=== PATIENT | male | born 1960 | race Hispanic/Latino ===

== ENCOUNTER 2018-01-21 12:06 | Inpatient (IN) | payer MEDICARE ==
[2018-01-21] MEDS ORDERED: MOTRIN 800 MG PO PRN (14:33)
[2018-01-21] MEDS ORDERED: NON-FORMULARY (Levetiracetam [Keppra Tab] 1,000 MG) PO SCH (14:45)
[2018-01-21] MEDS ORDERED: NON-FORMULARY (Omeprazole Magnesium [Prilosec Otc] 20 MG) PO SCH (14:45)
[2018-01-21] MEDS ORDERED: FLUTICASONE INHALATION SCH (14:45)
[2018-01-21] MEDS ORDERED: VITAMIN B-1 100 MG, FOLVITE 1 MG, INFUVITE 10 ML in NACL 0.9% 1000 ML 1,000 ML IV ONE (14:46)
[2018-01-21] MEDS ORDERED: SODIUM CHLORIDE FLUSH SYRINGE 10 ML IV PRN (14:48)
[2018-01-21] MEDS ORDERED: TYLENOL PO PRN (14:48)
[2018-01-21] MEDS ORDERED: ZOFRAN IV PRN (14:48)
[2018-01-21] MEDS ORDERED: AMBIEN PO PRN (14:48)
[2018-01-21] MEDS ORDERED: PERCOCET 5/325 PO PRN (14:48)
[2018-01-21] MEDS ORDERED: MORPHINE IV PRN (14:48)
[2018-01-21] MEDS ORDERED: ATIVAN IV PRN (14:51)
[2018-01-21 14:57] LABS: Amphetamine Screen,Urine PRESUMPTIVE NEGATIVE; Benzodiazepines Screen,Urine PRESUMPTIVE NEGATIVE; Cannabinoid Screen,Urine PRESUMPTIVE NEGATIVE; Cocaine Screen,Urine PRESUMPTIVE NEGATIVE; Methadone Screen,Urine PRESUMPTIVE NEGATIVE; Opiate Screen,Urine PRESUMPTIVE NEGATIVE
[2018-01-21] MEDS: FLONASE NS SCH (15:26)
[2018-01-21] MEDS: ALLBEE WITH C PO SCH (15:26)
[2018-01-21] MEDS: TOPAMAX PO SCH ×2 (15:27→21:31)
[2018-01-21] MEDS: ZOLOFT PO SCH (15:27)
[2018-01-21 15:59] LABS: Basophils % (Auto) 1.1 % (0.0-1.8); Eosinophils # (Auto) 0.2 K/mm3 (0.0-0.4); Eosinophils % (Auto) 4.8 % (0.0-4.3); Hematocrit 36.3 % (35.5-45.6); Hemoglobin 12.6 gm/dl (11.8-15.2); Lymphocytes # (Auto) 1.7 K/mm3 (1.2-5.4); Lymphocytes % (Auto) 40.3 % (13.4-35.0); Mean Corpuscular HGB Conc 35 % (32-34); Mean Corpuscular Hemoglobin 34 pg (28-32); Mean Corpuscular Volume 98 fl (84-94); Monocytes # (Auto) 0.4 K/mm3 (0.0-0.8); Red Blood Count 3.71 M/mm3 (3.65-5.03); Red Cell Distribution Width 14.4 % (13.2-15.2)
[2018-01-21 16:17] LABS: Alanine Aminotransferase 18 units/L (7-56); Albumin 4.5 g/dL (3.9-5); BUN/Creatinine Ratio 24; Blood Urea Nitrogen 17 mg/dL (9-20); Calcium 9.6 mg/dL (8.4-10.2); Hemolysis Index 65
[2018-01-21 16:34] LABS: Platelet Count 121 K/mm3 (140-440)
[2018-01-21] MEDS: PEPCID PO SCH (21:31)
[2018-01-21] MEDS: KEPPRA PO SCH (21:31)
[2018-01-21] MEDS: SODIUM CHLORIDE FLUSH SYRINGE 10 ML IV SCH (21:32)
[2018-01-21] MEDS: MOTRIN PO PRN (21:32)
[2018-01-21] MEDS: D5NS 1,000 ML IV SCH (21:35)
--- NOTE | 2018-01-21 22:03 | History and Physical Report ---
History of Present Illness Date of examination: 01/21/18 Date of admission: 01/21/18 13:33 Chief complaint: CC: EtOH dependence and withdrawal --2 days History of present illness: History of present illness ; 57-year-old male with history of hypertension cerebrovascular accident comes in for EtOH dependence for the last 30 years. Patient does binge drinking once or twice a week. 8 ounces TO 16 ounces of vodka. Patient has some nervousness and agitation and withdrawal symptoms. Hence patient was admission for stabilization and further specialists care. Patient is nervous. Past History Past Medical History: GERD, hypertension, stroke (has residual left upper extremity weakness 3+/5 POWER) Past Surgical History: Other (arthroscopic knee left) Social history: smoking (in the past), alcohol abuse (based drinking once or twice a week up to 60 ounces of vodka as been doing it for last 30 years), full code Family history: hypertension Medications and Allergies Allergies Allergy/AdvReac Type Severity Reaction Status Date / Time BEE STING Allergy Swelling Uncoded 01/21/18 13:45 LOBSTER Allergy Hives Uncoded 01/21/18 13:45 Home Medications Medication Instructions Recorded Confirmed Last Taken Type B-Complex with Vitamin C 1 each PO DAILY 01/21/18 01/21/18 01/21/18 History [B-Complex Plus Vitamin C] Fluticasone (Nf) [Flovent 44 2 puff INHALATION DAILY 01/21/18 01/21/18 01/20/18 09:00 History MCG/PUFF HFA] Fluticasone [Flonase] 1 spray NS QDAY 01/21/18 01/21/18 Unknown History Motrin 800 MG tab 800 mg PO TID PRN 01/21/18 01/21/18 Unknown History Omeprazole Magnesium [PriLOSEC Otc] 20 mg PO QDAY 01/21/18 01/21/18 01/21/18 09: 00 History Sertraline [Zoloft] 100 mg PO QDAY 01/21/18 01/21/18 01/21/18 09:00 History Topiramate [Topamax] 200 mg PO BID 01/21/18 01/21/18 01/21/18 12:00 History levETIRAcetam [Keppra TAB] 2,000 mg PO BID 0901/21/18 01/21/18 12:00 History Active Meds: Active Medications Acetaminophen (Tylenol) 650 mg PO Q4H PRN PRN Reason: Pain MILD(1-3)/Fever >100.5/[place] Famotidine (Pepcid) 20 mg PO BID [facility] Last Admin: 01/21/18 21:31 Dose: 20 mg Fluticasone Propionate (Flonase) 50 mcg NS QDAY [facility] Last Admin: 01/21/18 15:26 Dose: Not Given Fluticasone Propionate (Flonase) 100 mcg NS QDAY [facility] Folic Acid (Folvite) 1 mg PO QDAY [facility] Thiamine HCl 100 mg/ Folic Acid 1 mg/ Multivitamins/Minerals 10 ml/ Sodium Chloride 1,011.2 mls @ 125 mls/hr IV ONCE ONE Stop: 01/21/18 22:51 Last Admin: 01/21/18 15:34 Dose: 125 mls/hr Dextrose/Sodium Chloride (D5ns) 1,000 mls @ 100 mls/hr IV DIRECT [facility] Last Admin: 01/21/18 21:35 Dose: 100 mls/hr Ibuprofen (Motrin) 800 mg PO Q8H PRN PRN Reason: Pain, Moderate (4-6) Last Admin: 01/21/18 21:32 Dose: 800 mg Levetiracetam (Keppra) 1,000 mg PO BID [facility] Last Admin: 01/21/18 21:31 Dose: 1,000 mg Lorazepam (Ativan) 1 mg IV Q4H PRN PRN Reason: Anxiety Stop: 01/22/18 05:00 Lorazepam (Ativan) 1 mg IV Q6H PRN PRN Reason: Agitation Stop: 01/23/18 04:59 Lorazepam (Ativan) 1 mg PO Q8H PRN PRN Reason: Agitation Stop: 01/27/18 23:59 Morphine Sulfate (Morphine) 2 mg IV Q4H PRN PRN Reason: Pain, Moderate (4-6) Ondansetron HCl (Zofran) 4 mg IV Q8H PRN PRN Reason: Nausea And Vomiting Oxycodone/Acetaminophen (Percocet 5/325) 1 tab PO Q6H PRN PRN Reason: Pain, Moderate (4-6) Pantoprazole Sodium (Protonix) 20 mg PO QDAY [facility] Sertraline HCl (Zoloft) 100 mg PO QDAY [facility] Last Admin: 01/21/18 15:27 Dose: Not Given Sodium Chloride (Sodium Chloride Flush Syringe 10 Ml) 10 ml IV BID [facility] Last Admin: 01/21/18 21:32 Dose: 10 ml Sodium Chloride (Sodium Chloride Flush Syringe 10 Ml) 10 ml IV PRN PRN PRN Reason: LINE FLUSH Thiamine HCl (Vitamin B-1) 100 mg PO QDAY [facility] Topiramate (Topamax) 200 mg PO BID [facility] Last Admin: 01/21/18 21:31 Dose: 200 mg Vitamin B Complex/Vitamin C ([place] With C) 1 each PO DAILY [facility] Last Admin: 01/21/18 15:26 Dose: Not Given Zolpidem Tartrate (Ambien) 5 mg PO QHS PRN PRN Reason: Insomnia Review of Systems All systems: negative Ears, nose, mouth and throat: no hoarseness, no sore throat Cardiovascular: no chest pain, no orthopnea, no palpitations, no rapid/ irregular heart beat, no edema, no syncope, no lightheadedness, no shortness of breath Respiratory: no cough, no cough with sputum, no excessive sputum, no hemoptysis , no shortness of breath, no dyspnea on exertion Gastrointestinal: no abdominal pain, no nausea, no vomiting, no diarrhea, no constipation, no change in bowel habits, no hematemesis Genitourinary Male: no dysuria, no hematuria, no discharge Rectal: no pain Musculoskeletal: no neck stiffness, no neck pain, no shooting arm pain, no arm numbness/tingling, no low back pain Integumentary: no rash, no pruritis, no redness, no sores Neurological: weakness (left upper extremity 3+/5 power) Psychiatric: anxiety, insomnia, change in appetite, irritability Endocrine: no cold intolerance, no heat intolerance, no polyphagia, no excessive thirst Hematologic/Lymphatic: no easy bruising, no easy bleeding Allergic/Immunologic: no urticaria, no allergic rhinitis, no wheezing Exam - Constitutional Vitals: Temp Pulse Resp BP Pulse Ox 97.8 F 60 20 96/62 95 01/21/18 20:00 01/21/18 20:00 01/21/18 20:00 01/21/18 20:00 01/21/18 20:00 General appearance: Present: no acute distress, well-nourished - EENT Eyes: Present: PERRL ENT: hearing intact, clear oral mucosa - Neck Neck: Present: supple, normal ROM - Respiratory Respiratory effort: normal Respiratory: bilateral: CTA - Cardiovascular Heart rate: 80 Rhythm: regular Heart Sounds: Present: S1 & S2. Absent: rub, click - Extremities Extremities: no ischemia, pulses intact, pulses symmetrical, No edema Peripheral Pulses: within normal limits - Abdominal General gastrointestinal: Present: soft, non-tender, non-distended, normal bowel sounds Male genitourinary: Present: normal - Rectal Rectal Exam: deferred - Integumentary Integumentary: Present: clear, warm, dry - Musculoskeletal Musculoskeletal: gait normal, strength equal bilaterally - Psychiatric Psychiatric: appropriate mood/affect, intact judgment & insight - Neurologic Neurologic: CNII-XII intact, moves all extremities Results - Labs CBC & Chem 7: 01/21/18 15:07 01/21/18 15:07 Labs: Laboratory Last Values WBC 4.3 K/mm3 (4.5-11.0) L 01/21/18 15:07 RBC 3.71 M/mm3 (3.65-5.03) 01/21/18 15:07 Hgb 12.6 gm/dl (11.8-15.2) 01/21/18 15:07 Hct 36.3 % (35.5-45.6) 01/21/18 15:07 MCV 98 fl (84-94) H 01/21/18 15:07 MCH 34 pg (28-32) H 01/21/18 15:07 MCHC 35 % (32-34) H 01/21/18 15:07 RDW 14.4 % (13.2-15.2) 01/21/18 15:07 Plt Count 121 K/mm3 (140-440) L 01/21/18 15:07 Lymph % (Auto) 40.3 % (13.4-35.0) H 01/21/18 15:07 [place] % (Auto) 10.0 % (0.0-7.3) H 01/21/18 15:07 Eos % (Auto) 4.8 % (0.0-4.3) H 01/21/18 15:07 Baso % (Auto) 1.1 % (0.0-1.8) 01/21/18 15:07 Lymph # 1.7 K/mm3 (1.2-5.4) 01/21/18 15:07 [place] # 0.4 K/mm3 (0.0-0.8) 01/21/18 15:07 Eos # 0.2 K/mm3 (0.0-0.4) 01/21/18 15:07 Baso # 0.0 K/mm3 (0.0-0.1) 01/21/18 15:07 Seg Neutrophils % 43.8 % (40.0-70.0) 01/21/18 15:07 Seg Neutrophils # 1.9 K/mm3 (1.8-7.7) 01/21/18 15:07 Sodium 138 mmol/L (137-145) 01/21/18 15:07 Potassium 4.9 mmol/L (3.6-5.0) 01/21/18 15:07 Chloride 105.2 mmol/L (98-107) 01/21/18 15:07 Carbon Dioxide 24 mmol/L (22-30) 01/21/18 15:07 Anion Gap 14 mmol/L 01/21/18 15:07 BUN 17 mg/dL (9-20) 01/21/18 15:07 Creatinine 0.7 mg/dL (0.8-1.5) L 01/21/18 15:07 Estimated GFR > 60 ml/min 01/21/18 15:07 BUN/Creatinine Ratio 24 % 01/21/18 15:07 Glucose 74 mg/dL (75-100) L 01/21/18 15:07 Hemoglobin A1c 5.5 % (4-6) 01/21/18 15:07 Calcium 9.6 mg/dL (8.4-10.2) 01/21/18 15:07 Total Bilirubin 0.30 mg/dL (0.1-1.2) 01/21/18 15:07 AST 29 units/L (5-40) 01/21/18 15:07 ALT 18 units/L (7-56) 01/21/18 15:07 Alkaline Phosphatase 66 units/L (35-129) 01/21/18 15:07 Total Protein 7.0 g/dL (6.3-8.2) 01/21/18 15:07 Albumin 4.5 g/dL (3.9-5) 01/21/18 15:07 Albumin/Globulin Ratio 1.8 % 01/21/18 15:07 Urine Opiates Screen Presumptive negative 01/21/18 Unknown Urine Methadone Screen Presumptive negative 01/21/18 Unknown Ur Barbiturates Screen Presumptive negative 01/21/18 Unknown Ur Phencyclidine Scrn Presumptive negative 01/21/18 Unknown Ur Amphetamines Screen Presumptive negative 01/21/18 Unknown U Benzodiazepines Scrn Presumptive negative 01/21/18 Unknown Urine Cocaine Screen Presumptive negative 01/21/18 Unknown U Marijuana (THC) Screen Presumptive negative 01/21/18 Unknown Drugs of Abuse Note Disclamer 01/21/18 Unknown Assessment and Plan Advance Directives: Yes (full code) VTE prophylaxis?: Chemical Plan of care discussed with patient/family: Yes - Patient Problems (1) EtOH dependence Current Visit: Yes Status: Chronic Qualifiers: Substance use status: uncomplicated Qualified Code(s): F10.20 - Alcohol dependence, uncomplicated Plan to address problem: Patient initiated on banana bag and IV Ativan 1 mg every 4 hours when necessary for the first day then daily 1 mg every 6 hours on the second day and lorazepam 1 mg every 8 hours the third day. I also initiated on thiamine and folic acid, Zofran for nausea or vomiting (2) GERD (gastroesophageal reflux disease) Current Visit: Yes Status: Chronic Qualifiers: Esophagitis presence: without esophagitis Qualified Code(s): K21.9 - Gastro -esophageal reflux disease without esophagitis Plan to address problem: Omeprazole started (3) Allergic rhinitis Current Visit: Yes Status: Chronic Qualifiers: Allergic rhinitis seasonality: unspecified Plan to address problem: Continue Flonase (4) DVT prophylaxis Current Visit: Yes Status: Acute Plan to address problem: On Lovenox
[2018-01-22] MEDS ORDERED: ATIVAN IV PRN ×2 (05:00→16:32)
[2018-01-22] MEDS: TOPAMAX PO SCH ×2 (09:00→23:43)
[2018-01-22] MEDS: FOLVITE PO SCH (09:00)
[2018-01-22] MEDS: PROTONIX PO SCH (09:00)
[2018-01-22] MEDS: PEPCID PO SCH ×2 (09:01→23:38)
[2018-01-22] MEDS: ZOLOFT PO SCH (09:01)
[2018-01-22] MEDS: VITAMIN B-1 PO SCH (09:01)
[2018-01-22] MEDS: KEPPRA PO SCH ×2 (09:01→23:39)
[2018-01-22] MEDS: FLONASE NS SCH (09:02)
[2018-01-22] MEDS: ALLBEE WITH C PO SCH (09:02)
[2018-01-22] MEDS ORDERED: FLONASE NS SCH (10:00)
[2018-01-22] MEDS: D5NS 1,000 ML IV SCH (10:17)
[2018-01-22] MEDS: SODIUM CHLORIDE FLUSH SYRINGE 10 ML IV SCH (10:19)
[2018-01-22] MEDS ORDERED: ROBAXIN PO PRN (16:32)
[2018-01-22] MEDS ORDERED: VISTARIL PO PRN (16:32)
[2018-01-22] MEDS ORDERED: BENTYL PO PRN (16:32)
[2018-01-22] MEDS: ATIVAN PO SCH ×2 (17:55→23:38)
--- NOTE | 2018-01-22 18:20 | Progress Note ---
Assessment and Plan Assessment and plan: Alcohol dependence. patient admitted for stabilization. Cont ativan as per protocol Thiamine, folic acid Alcohol withdrawal syndrome. CIWA protocol History of allergic rhinitis Zyrtec full code status History Interval history: Tremors, Nausea Anxiety Hospitalist Physical - Physical exam Narrative exam: GEN: Not in acute distress, sitting up in bed, HEENT: Normocephalic, atraumatic, Neck: supple, No JVD Lungs: Clear to auscultation bilaterally, no crackles Heart:S1 and S2 reg, no murmurs, rubs or gallop Abd:soft, tender, non distended,Normal bowel sounds Ext: No edema, no clubbing, no cyanosis Neuro: Awake, alert, oriented x 3, mild tremors both hands - Constitutional Vitals: Temp Pulse Resp BP Pulse Ox 98.0 F 54 L 20 111/56 100 01/22/18 16:06 01/22/18 16:06 01/22/18 16:06 01/22/18 16:06 01/22/18 16:06 General appearance: Present: no acute distress, well-nourished Results - Labs CBC & Chem 7: 01/21/18 15:07 01/21/18 15:07 Labs: Laboratory Last Values WBC 4.3 K/mm3 (4.5-11.0) L 01/21/18 15:07 RBC 3.71 M/mm3 (3.65-5.03) 01/21/18 15:07 Hgb 12.6 gm/dl (11.8-15.2) 01/21/18 15:07 Hct 36.3 % (35.5-45.6) 01/21/18 15:07 MCV 98 fl (84-94) H 01/21/18 15:07 MCH 34 pg (28-32) H 01/21/18 15:07 MCHC 35 % (32-34) H 01/21/18 15:07 RDW 14.4 % (13.2-15.2) 01/21/18 15:07 Plt Count 121 K/mm3 (140-440) L 01/21/18 15:07 Lymph % (Auto) 40.3 % (13.4-35.0) H 01/21/18 15:07 [place] % (Auto) 10.0 % (0.0-7.3) H 01/21/18 15:07 Eos % (Auto) 4.8 % (0.0-4.3) H 01/21/18 15:07 Baso % (Auto) 1.1 % (0.0-1.8) 01/21/18 15:07 Lymph # 1.7 K/mm3 (1.2-5.4) 01/21/18 15:07 [place] # 0.4 K/mm3 (0.0-0.8) 01/21/18 15:07 Eos # 0.2 K/mm3 (0.0-0.4) 01/21/18 15:07 Baso # 0.0 K/mm3 (0.0-0.1) 01/21/18 15:07 Seg Neutrophils % 43.8 % (40.0-70.0) 01/21/18 15:07 Seg Neutrophils # 1.9 K/mm3 (1.8-7.7) 01/21/18 15:07 Sodium 138 mmol/L (137-145) 01/21/18 15:07 Potassium 4.9 mmol/L (3.6-5.0) 01/21/18 15:07 Chloride 105.2 mmol/L (98-107) 01/21/18 15:07 Carbon Dioxide 24 mmol/L (22-30) 01/21/18 15:07 Anion Gap 14 mmol/L 01/21/18 15:07 BUN 17 mg/dL (9-20) 01/21/18 15:07 Creatinine 0.7 mg/dL (0.8-1.5) L 01/21/18 15:07 Estimated GFR > 60 ml/min 01/21/18 15:07 BUN/Creatinine Ratio 24 % 01/21/18 15:07 Glucose 74 mg/dL (75-100) L 01/21/18 15:07 Hemoglobin A1c 5.5 % (4-6) 01/21/18 15:07 Calcium 9.6 mg/dL (8.4-10.2) 01/21/18 15:07 Total Bilirubin 0.30 mg/dL (0.1-1.2) 01/21/18 15:07 AST 29 units/L (5-40) 01/21/18 15:07 ALT 18 units/L (7-56) 01/21/18 15:07 Alkaline Phosphatase 66 units/L (35-129) 01/21/18 15:07 Total Protein 7.0 g/dL (6.3-8.2) 01/21/18 15:07 Albumin 4.5 g/dL (3.9-5) 01/21/18 15:07 Albumin/Globulin Ratio 1.8 % 01/21/18 15:07 Urine Opiates Screen Presumptive negative 01/21/18 Unknown Urine Methadone Screen Presumptive negative 01/21/18 Unknown Ur Barbiturates Screen Presumptive negative 01/21/18 Unknown Ur Phencyclidine Scrn Presumptive negative 01/21/18 Unknown Ur Amphetamines Screen Presumptive negative 01/21/18 Unknown U Benzodiazepines Scrn Presumptive negative 01/21/18 Unknown Urine Cocaine Screen Presumptive negative 01/21/18 Unknown U Marijuana (THC) Screen Presumptive negative 01/21/18 Unknown Drugs of Abuse Note Disclamer 01/21/18 Unknown
[2018-01-23] MEDS ORDERED: ATIVAN PO PRN (04:55)
[2018-01-23] MEDS: PEPCID PO SCH ×2 (09:39→21:23)
[2018-01-23] MEDS: KEPPRA PO SCH ×2 (09:40→21:23)
[2018-01-23] MEDS: ATIVAN PO SCH ×4 (09:40→17:40)
[2018-01-23] MEDS: FOLVITE PO SCH (09:40)
[2018-01-23] MEDS: VITAMIN B-1 PO SCH (09:40)
[2018-01-23] MEDS: ZOLOFT PO SCH (09:40)
[2018-01-23] MEDS: PROTONIX PO SCH (09:40)
[2018-01-23] MEDS: SODIUM CHLORIDE FLUSH SYRINGE 10 ML IV SCH ×2 (09:41→23:31)
[2018-01-23] MEDS: TOPAMAX PO SCH ×2 (09:41→21:23)
[2018-01-23] MEDS: ALLBEE WITH C PO SCH (09:41)
[2018-01-23] MEDS: CLARITIN PO SCH (12:37)
[2018-01-23] MEDS: FLONASE NS SCH (17:56)
--- NOTE | 2018-01-23 18:13 | Progress Note ---
Assessment and Plan Assessment and plan: Alcohol dependence. patient admitted for stabilization. Cont Ativan as per protocol Thiamine, folic acid Robaxin Alcohol withdrawal syndrome. CIWA protocol History of allergic rhinitis On Claritin full code status History Interval history: Tremors, Nausea Anxiety Hospitalist Physical - Physical exam Narrative exam: GEN: Not in acute distress, sitting up in bed, HEENT: Normocephalic, atraumatic, Neck: supple, No JVD Lungs: Clear to auscultation bilaterally, no crackles Heart:S1 and S2 reg, no murmurs, rubs or gallop Abd:soft, tender, non distended,Normal bowel sounds Ext: No edema, no clubbing, no cyanosis Neuro: Awake, alert, oriented x 3, mild tremors both hands - Constitutional Vitals: Temp Pulse Resp BP Pulse Ox 98.2 F 82 20 91/66 100 01/23/18 13:00 01/23/18 13:00 01/23/18 13:00 01/23/18 13:00 01/23/18 13:00 General appearance: Present: no acute distress, well-nourished Results - Labs CBC & Chem 7: 01/21/18 15:07 01/21/18 15:07 Labs: Laboratory Last Values WBC 4.3 K/mm3 (4.5-11.0) L 01/21/18 15:07 RBC 3.71 M/mm3 (3.65-5.03) 01/21/18 15:07 Hgb 12.6 gm/dl (11.8-15.2) 01/21/18 15:07 Hct 36.3 % (35.5-45.6) 01/21/18 15:07 MCV 98 fl (84-94) H 01/21/18 15:07 MCH 34 pg (28-32) H 01/21/18 15:07 MCHC 35 % (32-34) H 01/21/18 15:07 RDW 14.4 % (13.2-15.2) 01/21/18 15:07 Plt Count 121 K/mm3 (140-440) L 01/21/18 15:07 Lymph % (Auto) 40.3 % (13.4-35.0) H 01/21/18 15:07 [place] % (Auto) 10.0 % (0.0-7.3) H 01/21/18 15:07 Eos % (Auto) 4.8 % (0.0-4.3) H 01/21/18 15:07 Baso % (Auto) 1.1 % (0.0-1.8) 01/21/18 15:07 Lymph # 1.7 K/mm3 (1.2-5.4) 01/21/18 15:07 [place] # 0.4 K/mm3 (0.0-0.8) 01/21/18 15:07 Eos # 0.2 K/mm3 (0.0-0.4) 01/21/18 15:07 Baso # 0.0 K/mm3 (0.0-0.1) 01/21/18 15:07 Seg Neutrophils % 43.8 % (40.0-70.0) 01/21/18 15:07 Seg Neutrophils # 1.9 K/mm3 (1.8-7.7) 01/21/18 15:07 Sodium 138 mmol/L (137-145) 01/21/18 15:07 Potassium 4.9 mmol/L (3.6-5.0) 01/21/18 15:07 Chloride 105.2 mmol/L (98-107) 01/21/18 15:07 Carbon Dioxide 24 mmol/L (22-30) 01/21/18 15:07 Anion Gap 14 mmol/L 01/21/18 15:07 BUN 17 mg/dL (9-20) 01/21/18 15:07 Creatinine 0.7 mg/dL (0.8-1.5) L 01/21/18 15:07 Estimated GFR > 60 ml/min 01/21/18 15:07 BUN/Creatinine Ratio 24 % 01/21/18 15:07 Glucose 74 mg/dL (75-100) L 01/21/18 15:07 Hemoglobin A1c 5.5 % (4-6) 01/21/18 15:07 Calcium 9.6 mg/dL (8.4-10.2) 01/21/18 15:07 Total Bilirubin 0.30 mg/dL (0.1-1.2) 01/21/18 15:07 AST 29 units/L (5-40) 01/21/18 15:07 ALT 18 units/L (7-56) 01/21/18 15:07 Alkaline Phosphatase 66 units/L (35-129) 01/21/18 15:07 Total Protein 7.0 g/dL (6.3-8.2) 01/21/18 15:07 Albumin 4.5 g/dL (3.9-5) 01/21/18 15:07 Albumin/Globulin Ratio 1.8 % 01/21/18 15:07 Urine Opiates Screen Presumptive negative 01/21/18 Unknown Urine Methadone Screen Presumptive negative 01/21/18 Unknown Ur Barbiturates Screen Presumptive negative 01/21/18 Unknown Ur Phencyclidine Scrn Presumptive negative 01/21/18 Unknown Ur Amphetamines Screen Presumptive negative 01/21/18 Unknown U Benzodiazepines Scrn Presumptive negative 01/21/18 Unknown Urine Cocaine Screen Presumptive negative 01/21/18 Unknown U Marijuana (THC) Screen Presumptive negative 01/21/18 Unknown Drugs of Abuse Note Disclamer 01/21/18 Unknown
[2018-01-23] MEDS: MOTRIN PO PRN (21:22)
[2018-01-24] MEDS: ATIVAN PO SCH ×4 (00:13→22:41)
[2018-01-24] MEDS: FLONASE NS SCH (09:12)
[2018-01-24] MEDS: PEPCID PO SCH ×2 (09:13→22:41)
[2018-01-24] MEDS: PROTONIX PO SCH (09:13)
[2018-01-24] MEDS: VITAMIN B-1 PO SCH (09:13)
[2018-01-24] MEDS: KEPPRA PO SCH ×2 (09:14→22:41)
[2018-01-24] MEDS: CLARITIN PO SCH (09:14)
[2018-01-24] MEDS: FOLVITE PO SCH (09:14)
[2018-01-24] MEDS: ALLBEE WITH C PO SCH (09:16)
[2018-01-24] MEDS: SODIUM CHLORIDE FLUSH SYRINGE 10 ML IV SCH ×2 (09:17→22:42)
[2018-01-24] MEDS: ZOLOFT PO SCH (09:20)
[2018-01-24] MEDS: TOPAMAX PO SCH ×2 (10:16→22:41)
[2018-01-25] MEDS: ATIVAN PO SCH (06:14)
[2018-01-25] MEDS: SODIUM CHLORIDE FLUSH SYRINGE 10 ML IV SCH (09:17)
[2018-01-25] MEDS: PEPCID PO SCH (09:18)
[2018-01-25] MEDS: ALLBEE WITH C PO SCH (09:18)
[2018-01-25] MEDS: KEPPRA PO SCH (09:18)
[2018-01-25] MEDS: CLARITIN PO SCH (09:19)
[2018-01-25] MEDS: VITAMIN B-1 PO SCH (09:19)
[2018-01-25] MEDS: FOLVITE PO SCH (09:19)
[2018-01-25] MEDS: PROTONIX PO SCH (09:19)
[2018-01-25] MEDS: ZOLOFT PO SCH (09:20)
[2018-01-25] MEDS: FLONASE NS SCH (09:20)
[2018-01-25] MEDS: TOPAMAX PO SCH (09:20)
--- NOTE | 2018-01-25 11:25 | Progress Note ---
Assessment and Plan Assessment and plan: Alcohol dependence. patient admitted for stabilization. Cont Ativan as per protocol ContinueThiamine, folic acid Robaxin Alcohol withdrawal syndrome. CIWA protocol Anxiety. History of allergic rhinitis On Claritin full code status Likely discharge to [facility] tomorrow History Interval history: feels better, less Tremors, Anxiety improved Hospitalist Physical - Physical exam Narrative exam: GEN: Not in acute distress, sitting up in bed, HEENT: Normocephalic, atraumatic, Neck: supple, No JVD Lungs: Clear to auscultation bilaterally, no crackles Heart:S1 and S2 reg, no murmurs, rubs or gallop Abd:soft, tender, non distended,Normal bowel sounds Ext: No edema, no clubbing, no cyanosis Neuro: Awake, alert, oriented x 3, mild tremors both hands - Constitutional Vitals: Temp Pulse Resp BP Pulse Ox 97.9 F 67 18 99/57 97 01/25/18 08:03 01/25/18 10:00 01/25/18 10:00 01/25/18 08:03 01/25/18 10:00 General appearance: Present: no acute distress, well-nourished Results - Labs CBC & Chem 7: 01/21/18 15:07 01/21/18 15:07 Labs: Laboratory Last Values WBC 4.3 K/mm3 (4.5-11.0) L 01/21/18 15:07 RBC 3.71 M/mm3 (3.65-5.03) 01/21/18 15:07 Hgb 12.6 gm/dl (11.8-15.2) 01/21/18 15:07 Hct 36.3 % (35.5-45.6) 01/21/18 15:07 MCV 98 fl (84-94) H 01/21/18 15:07 MCH 34 pg (28-32) H 01/21/18 15:07 MCHC 35 % (32-34) H 01/21/18 15:07 RDW 14.4 % (13.2-15.2) 01/21/18 15:07 Plt Count 121 K/mm3 (140-440) L 01/21/18 15:07 Lymph % (Auto) 40.3 % (13.4-35.0) H 01/21/18 15:07 [place] % (Auto) 10.0 % (0.0-7.3) H 01/21/18 15:07 Eos % (Auto) 4.8 % (0.0-4.3) H 01/21/18 15:07 Baso % (Auto) 1.1 % (0.0-1.8) 01/21/18 15:07 Lymph # 1.7 K/mm3 (1.2-5.4) 01/21/18 15:07 [place] # 0.4 K/mm3 (0.0-0.8) 01/21/18 15:07 Eos # 0.2 K/mm3 (0.0-0.4) 01/21/18 15:07 Baso # 0.0 K/mm3 (0.0-0.1) 01/21/18 15:07 Seg Neutrophils % 43.8 % (40.0-70.0) 01/21/18 15:07 Seg Neutrophils # 1.9 K/mm3 (1.8-7.7) 01/21/18 15:07 Sodium 138 mmol/L (137-145) 01/21/18 15:07 Potassium 4.9 mmol/L (3.6-5.0) 01/21/18 15:07 Chloride 105.2 mmol/L (98-107) 01/21/18 15:07 Carbon Dioxide 24 mmol/L (22-30) 01/21/18 15:07 Anion Gap 14 mmol/L 01/21/18 15:07 BUN 17 mg/dL (9-20) 01/21/18 15:07 Creatinine 0.7 mg/dL (0.8-1.5) L 01/21/18 15:07 Estimated GFR > 60 ml/min 01/21/18 15:07 BUN/Creatinine Ratio 24 % 01/21/18 15:07 Glucose 74 mg/dL (75-100) L 01/21/18 15:07 Hemoglobin A1c 5.5 % (4-6) 01/21/18 15:07 Calcium 9.6 mg/dL (8.4-10.2) 01/21/18 15:07 Total Bilirubin 0.30 mg/dL (0.1-1.2) 01/21/18 15:07 AST 29 units/L (5-40) 01/21/18 15:07 ALT 18 units/L (7-56) 01/21/18 15:07 Alkaline Phosphatase 66 units/L (35-129) 01/21/18 15:07 Total Protein 7.0 g/dL (6.3-8.2) 01/21/18 15:07 Albumin 4.5 g/dL (3.9-5) 01/21/18 15:07 Albumin/Globulin Ratio 1.8 % 01/21/18 15:07 Urine Opiates Screen Presumptive negative 01/21/18 Unknown Urine Methadone Screen Presumptive negative 01/21/18 Unknown Ur Barbiturates Screen Presumptive negative 01/21/18 Unknown Ur Phencyclidine Scrn Presumptive negative 01/21/18 Unknown Ur Amphetamines Screen Presumptive negative 01/21/18 Unknown U Benzodiazepines Scrn Presumptive negative 01/21/18 Unknown Urine Cocaine Screen Presumptive negative 01/21/18 Unknown U Marijuana (THC) Screen Presumptive negative 01/21/18 Unknown Drugs of Abuse Note Disclamer 01/21/18 Unknown
--- NOTE | 2018-01-25 11:33 | Discharge Summary ---
Providers - Providers Date of Admission: 01/21/18 13:33 Date of discharge: 01/25/18 Attending physician: MALENA RODGERS 01/21/18 Consult to Case Management [CONS] Routine Services Needed at Discharge: Home Health Services Notified:: Case Management Phone number called:: [phone] Was contact made?: Yes If yes, spoke with:: Diana Time called:: 17:00 Hospitalization Condition: Fair Disposition: DC/TX-65 PSY HOSP/PSY UNIT Core Measure Documentation - Palliative Care Palliative Care/ Comfort Measures: Not Applicable - Core Measures Any of the following diagnoses?: none Exam - Constitutional Vitals: Temp Pulse Resp BP Pulse Ox 97.9 F 67 18 99/57 97 01/25/18 08:03 01/25/18 10:00 01/25/18 10:00 01/25/18 08:03 01/25/18 10:00 Plan Activity: advance as tolerated Diet: low salt Additional Instructions: 1.Follow up with PCP on discharge Follow up with: YELENA GUSMAN MD [Other] - 7 Days Prescriptions: Folic Acid [Folvite] 1 mg PO QDAY #30 tablet Thiamine [Vitamin B-1] 100 mg PO QDAY #30 tablet
[2018-01-25 11:44] VITALS: BP 96/74
== END 2018-01-25 13:05 | DRG 897 ==
LOC: MSU 13:33
PROVIDERS: ADMIT Internal Medicine; ATTEND Internal Medicine
DX: F10.239 Alcohol dependence with withdrawal, unspecified (principal); F41.9 Anxiety disorder, unspecified; J30.9 Allergic rhinitis, unspecified; I10 Essential (primary) hypertension; K21.9 Gastro-esophageal reflux disease without esophagitis; F17.200 Nicotine dependence, unspecified, uncomplicated; Z82.49 Family history of ischemic heart disease and other diseases of the circulatory system; Z86.73 Personal history of transient ischemic attack (TIA), and cerebral infarction without residual deficits; Z91.030 Bee allergy status; Z79.899 Other long term (current) drug therapy
CPT/HCPCS: 36415; 80053; 80307; 83036; 85025; 87116; J2060; J3411; J7030; J7042